=== PATIENT | male | born 1975 | race Caucasian/White ===

== ENCOUNTER 2018-09-02 11:45 | Emergency (ER) | payer MEDICAID, OTHER ==
[~2018-09-02] VITALS: Ht 182.9 cm; Wt 83.9 kg
[2018-09-02 11:49] VITALS: BP 111/78
[2018-09-02] MEDS ORDERED: FLUORESCEIN SOD 1 MG TEST STRIP ONE (13:13)
[2018-09-02] MEDS ORDERED: FLUORESCEIN SOD 1 MG TEST STRIP OP ONE (13:15)
== END 2018-09-02 13:41 | disposition home or self-care (01) ==
LOC: ER 11:45
DX: H10.32 Unspecified acute conjunctivitis, left eye (principal); F17.210 Nicotine dependence, cigarettes, uncomplicated

== ENCOUNTER 2018-10-18 13:09 | Emergency (ER) | payer MEDICAID ==
[~2018-10-18] VITALS: Ht 177.8 cm; Wt 81.6 kg
[2018-10-18 15:13] VITALS: BP 165/100
[2018-10-18] MEDS ORDERED: KETOROLAC TROMETH 60MG/2ML VIAL IM ONE (16:00)
== END 2018-10-18 16:41 | disposition home or self-care (01) ==
LOC: EDUNIT# 13:09 → ER 13:09 → EDBD 13:09 → ER 16:41
DX: M54.5 Low back pain (principal); M54.2 Cervicalgia; F17.210 Nicotine dependence, cigarettes, uncomplicated; V49.9XXA Car occupant (driver) (passenger) injured in unspecified traffic accident, initial encounter; Y93.89 Activity, other specified; Y92.89 Other specified places as the place of occurrence of the external cause; Y99.8 Other external cause status
CPT/HCPCS: 96372; 99283; J1885

== ENCOUNTER 2022-01-06 12:26 | Emergency (ER) | payer MEDICAID ==
[~2022-01-06] VITALS: Ht 182.9 cm; Wt 87.0 kg
[2022-01-06 12:57] VITALS: BP 152/93
== END 2022-01-06 20:06 | disposition left against medical advice (07) ==
LOC: ER 12:26
DX: M79.661 Pain in right lower leg (principal); M79.662 Pain in left lower leg; Z53.21 Procedure and treatment not carried out due to patient leaving prior to being seen by health care provider